=== PATIENT | female | born 1965 | race Caucasian/White ===

== ENCOUNTER 2024-04-26 07:52 | Day surgery (SDC) | payer MEDICAID, OTHER ==
[~2024-04-26] VITALS: Ht 167.6 cm; Wt 77.1 kg
[2024-04-26] MEDS ORDERED: MIDAZOLAM HCL 5 MG/5 ML VIAL ONE ×2 (09:41→10:01)
[2024-04-26] MEDS ORDERED: MEPERIDINE 100 MG INJ. 100 MG/ML VIAL ONE (09:41)
[2024-04-26] MEDS ORDERED: ONDANSETRON HCL 4 MG/2 ML VIAL ONE (09:59)
[2024-04-26] MEDS ORDERED: DIPHENHYDRAMINE INJ 50 MG/ML VIAL ONE (09:59)
[2024-04-26 10:00] VITALS: O2SAT 100
[2024-04-26 15:47] VITALS: BP_SYST 110; PULSE 58; RESP 18
== END 2024-04-26 12:05 | disposition home or self-care (01) ==
LOC: SDS 07:52 → SMU 07:54 → SDS 12:05
PROVIDERS: ATTEND Internal Medicine
DX: Z12.11 Encounter for screening for malignant neoplasm of colon (principal); D12.4 Benign neoplasm of descending colon; K31.89 Other diseases of stomach and duodenum; K57.30 Diverticulosis of large intestine without perforation or abscess without bleeding; K44.9 Diaphragmatic hernia without obstruction or gangrene; I10 Essential (primary) hypertension; E78.5 Hyperlipidemia, unspecified; F41.9 Anxiety disorder, unspecified; K21.9 Gastro-esophageal reflux disease without esophagitis; Z91.040 Latex allergy status; Z79.899 Other long term (current) drug therapy
CPT/HCPCS: 45385; 43239; 99152; 88305; 88312; 88313; 99153; G0378; J1200; J2250; J2405; J2175; 43251